=== PATIENT | male | born 1980 | race Caucasian/White ===

== ENCOUNTER 2020-12-08 18:56 | Emergency (ER) | payer OTHER ==
[~2020-12-08] VITALS: Ht 162.6 cm; Wt 81.6 kg
[~2020-12-08 18:56] MED LIST: BUSPIRONE HCL10 MG PO; CATAPRES0.2 MG PO; VISTARIL50 MG PO
--- OUTSIDE RECORDS SUMMARY | 2020-12-08 18:58 | XMS ---
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 Guidelines Date: 10/22/2019 Care Coordination: Has\T\nbsp;received\T\nbsp;mental health services with [employer].\T\nbsp; Please contact [employer] with mental health\T\nbsp;concerns.\T\nbsp; [facility]: [phone]\T\nbsp; [facility]: [phone]. E.D. VISIT COUNT (12 MO.) [address] Marga Puckett 1 [facility] TOTAL 6 NOTE: Visits indicate total known visits. ED/UCC VISIT TRACKING (12 MO.) 12/08/2020 18:57 [facility] COMPLAINT: - FAINT, NAUSEA 11[facility]20[facility]2020 13[facility] DIAGNOSES: - Anxiety disorder, unspecified - Primary insomnia - insomnia 11/03/2020 13:34 [facility] Kathleen Wang [place] TYPE: Emergency DIAGNOSES: - Chest Pain - Left arm weakness, chest pain - Palpitations - Anesthesia of skin - Paresthesia of skin - Anxiety disorder, unspecified 10/21/2020 14:24 [facility] [place] [facility] DIAGNOSES: - Syncope - Panic disorder [episodic paroxysmal anxiety] - Syncope and collapse - Other somatoform disorders 10/15/2020 12:54 [facility] [place] [facility] DIAGNOSES: - Nausea - Emesis - Headache (Adult - New Onset Or New Symptoms) - Anxiety - Generalized Body Aches - Myalgia, unspecified site - Anxiety disorder, unspecified 02/10/2020 19:22 [facility] [place] [facility] Emergency DIAGNOSES: - Rib Pain - poss broken rib - Fracture of one rib, unspecified side, initial encounter for closed fracture INPATIENT VISIT TRACKING (12 MO.) No inpatient visits to display in this time frame [email or web address]
[2020-12-08] MEDS ORDERED: SEROQUEL25 MG PO (19:26)
== END 2020-12-08 23:25 | disposition home or self-care (01) ==
LOC: ED 18:56
DX: F41.0 Panic disorder [episodic paroxysmal anxiety] (principal); R20.2 Paresthesia of skin; F17.200 Nicotine dependence, unspecified, uncomplicated; Z79.899 Other long term (current) drug therapy
CPT/HCPCS: 80053; 81001; 83735; 85025; 96374; 99284-25; J2405; J7030

== ENCOUNTER 2023-09-02 12:11 | Emergency (ER) | payer OTHER ==
[~2023-09-02] VITALS: Ht 162.6 cm; Wt 62.8 kg
[~2023-09-02 12:11] MED LIST changes: +SEROQUEL25 MG PO
--- OUTSIDE RECORDS SUMMARY | 2023-09-02 12:21 | XMS ---
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 ED/UCC VISIT TRACKING (12 MO.) 09/02/2023 12:13 [facility] [place] TYPE: Emergency COMPLAINT: - CAN'T FEEL LEGS 08/21/2023 23:44 [facility] Marga SOMMERS (Kathleen Wang) TYPE: Emergency DIAGNOSES: - Other chronic pain - Other intervertebral disc degeneration, thoracic region - Pain in thoracic spine - back pain 08/16/2023 21:16 [facility] Kathleen Wang [place]IE[place] (Kathleen Wang) TYPE: Emergency DIAGNOSES: - Low back pain, unspecified - Other chronic pain - Back Pain 08/09/2023 09:53 [facility] Kathleen Wang [place] (Kathleen Wang) TYPE: Emergency DIAGNOSES: - Sciatica, right side - Spondylosis without myelopathy or radiculopathy, lumbar region - Back Pain - back pain and leg numbness 07/11/2023 17:40 [facility] Kathleen Wang [place] (Kathleen Wang) TYPE: Emergency DIAGNOSES: - Radiculopathy, lumbar region - Sciatica, right side - back pain - Leg Pain (Non-traumatic) - Numbness 06/30/2023 06:07 [facility] Kathleen Wang [place] (Kathleen Wang) TYPE: Emergency DIAGNOSES: - Low back pain, unspecified - Other chronic pain - Back Pain - Shoulder Pain 04/08/2023 14:57 [facility] Kathleen SOMMERS (Kathleen Wang) TYPE: Emergency DIAGNOSES: - Strain of muscle, fascia and tendon of lower back, initial encounter - Cough - CT coughing up blood - Hemoptysis (<120cc Per Day) 03/03/2023 22:21 [facility] Kathleen SOMMERS (Kathleen Wang) TYPE: Emergency DIAGNOSES: - Procedure and treatment not carried out due to patient leaving prior to being seen by health care provider - Back Pain - rib pain 10/21/2022 07:29 [facility] Kathleen SOMMERS (Kathleen Wang) TYPE: Emergency DIAGNOSES: - COVID-19 - Cough - right lung pain,fever - Shortness of Breath 10/16/2022 18:38 [facility] Kathleen Wang [place] (Kathleen Wang) TYPE: Emergency DIAGNOSES: - COVID-19 - Fever (9 Weeks To 74 Years) - fever, sore throat 10/16/2022 02:27 [facility] Kathleen Wang [place] (Kathleen Wang) TYPE: Emergency DIAGNOSES: - Chest pain, unspecified - Chest Pain - right sided chest pain/ right arm pain 09/08/2022 05:55 [facility] Kathleen Wang [place] (Kathleen Wang) TYPE: Emergency DIAGNOSES: - Other specified disorders of teeth and supporting structures - RT upper dental pain INPATIENT VISIT TRACKING (12 MO.) No inpatient visits to display in this time frame [email or web address]
[2023-09-02] MEDS ORDERED: BACLOFEN20 MG PO (12:30)
[2023-09-02] MEDS ORDERED: TRAMADOL HCL50 MG PO (13:27)
[2023-09-02] MEDS ORDERED: METHYLPREDNISOLO4 M1 PO (13:27)
[2023-09-02] MEDS ORDERED: NEURONTIN300 MG PO (13:27)
[2023-09-02 13:28] LABS: BILIRUBIN, URINE NEGATIVE (negative); BLOOD/HGB, URINE NEGATIVE (Negative); KETONE, URINE TRACE (Negative); LEUK ESTERASE, URINE NEGATIVE (negative); NITRITE, URINE NEGATIVE (negative)
[2023-09-02 13:31] LABS: BASOPHILS 0.5 % (0-2); EOSINOPHILS 0.4 % (0-6); HEMATOCRIT 39.9 % (35.0-50.0); HEMOGLOBIN 13.7 g/dL (12.0-18.0); LYMPHOCYTES 28.4 % (24-44); MCH 33.5 (27-36); MCHC 34.3 g/dl (30-36); MCV 97.7 fl (81-99); MONOCYTES 8.5 % (0-12); NEUTROPHILS 62.2 % (39-80); PLATELET COUNT 354 K/uL (140-440); RBC 4.09 M/ul (4.3-5.7); RDW 14.6 (10.5-15.0)
[2023-09-02 13:46] LABS: ALBUMIN 4.1 g/dL (3.4-5.0); ALBUMIN/GLOBULIN RATIO 1.41 (1.1-2.4); ANION GAP 13.8 (7-21); BILIRUBIN, TOTAL 0.6 ng/dL (0.2-1.0); BUN/CREATININE RATIO 25.97 (6.0-28.6); CALCIUM 9.4 mg/dL (8.5-10.1); CREATININE, SERUM 0.77 mg/dL (0.70-1.30); POTASSIUM 3.8 mmol/L (3.5-5.1)
[2023-09-02 13:53] LABS: AMPHETAMINES, URINE NEGATIVE (NEGATIVE); BARBITURATES, URINE NEGATIVE (NEGATIVE); BENZODIAZEPINE, URINE NEGATIVE (NEGATIVE); BUPRENORPHINE, URINE NEGATIVE (NEGATIVE); CANNABINOID, URINE POSITIVE (NEGATIVE); COCAINE, URINE NEGATIVE (NEGATIVE); ECSTASY, URINE NEGATIVE (NEGATIVE); FENTANYL, URINE POSITIVE (NEGATIVE); METHADONE, URINE NEGATIVE (NEGATIVE); OPIATES, URINE NEGATIVE (NEGATIVE); OXYCODONE, URINE NEGATIVE (NEGATIVE); PHENCYCLIDINE, URINE NEGATIVE (NEGATIVE)
[2023-09-02 15:05] VITALS: BP 98/68
== END 2023-09-02 15:05 | disposition home or self-care (01) ==
LOC: ED 12:11
PROVIDERS: Internal Medicine
DX: M48.061 Spinal stenosis, lumbar region without neurogenic claudication (principal); M48.54XA Collapsed vertebra, not elsewhere classified, thoracic region, initial encounter for fracture; F17.200 Nicotine dependence, unspecified, uncomplicated
CPT/HCPCS: 36415; 72131; 80053; 80307; 81003; 85025; 99284-25; 99406; A9270; A9270-GY